=== PATIENT | female | born 1990 | race Caucasian/White ===

== ENCOUNTER 2016-08-27 21:42 | Inpatient (IN) | payer OTHER ==
[~2016-08-27] VITALS: Ht 170.2 cm; Wt 109.8 kg
--- NOTE | 2016-08-27 22:15 | NUR ---
TRIAGE: PT TO ER C/C "FOR THE PAST 4 DAYS I LITERALLY CAN'T STOP CRYING. I CAN'T GET OUT OF THIS REALLY BAD LOW THAT I AM IN AND IT JUST SEEMS TO BE GETTING WORSE." -SI/-HI. ADMITS TO OCCASIONAL ETOH USE, LAST DRINK WINE 2 WEEKS AGO. DENIES OTHER SUBSTANCE USE/ABUSE. PT CALM AND NOT ACTIVELY CRYING AT TRIAGE. PT HERE WITH HER .
--- NOTE | 2016-08-27 22:15 | NUR ---
Informed waiting has been performed.
--- NOTE | 2016-08-27 22:54 | ED PSYCHIATRIC COMPLAINT ---
See Addendum History of Present Illness General Chief Complaint: Psychiatric Related Complaint Stated Complaint: PSY EVAL, DENIES SI/HI "FEELS HOPELESS" Source: patient, old records Exam Limitations: no limitations Vital Signs & Intake/Output Vital Signs & Intake/Output Vital Signs Date Time Temp Pulse Resp B/P B/P Pulse O2 O2 Flow FiO2 Mean Ox Delivery Rate 08/28 0130 97.2 86 18 130/82 99 Room Air 08/27 2212 97.6 88 20 138/86 99 Room Air ED Intake and Output 08/28 0000 08/27 1200 Intake Total Output Total Balance Patient 242 lb Weight Weight Reported by Patient Measurement Method Allergies Coded Allergies: orange juice (Severe, TONGUE SWELLING 08/27/16) codeine (Intermediate, HYPER 08/27/16) Triage Note: TRIAGE: PT TO ER C/C "FOR THE PAST 4 DAYS I LITERALLY CAN'T STOP CRYING. I CAN'T GET OUT OF THIS REALLY BAD LOW THAT I AM IN AND IT JUST SEEMS TO BE GETTING WORSE." -SI/-HI. ADMITS TO OCCASIONAL ETOH USE, LAST DRINK WINE 2 WEEKS AGO. DENIES OTHER SUBSTANCE USE/ABUSE. PT CALM AND NOT ACTIVELY CRYING AT TRIAGE. PT HERE WITH HER . Triage Nurses Notes Reviewed? yes Onset: Gradual Duration: week(s): (4), constant, getting worse Timing: recent history Severity: severe Severity Numbers: 10 Associated Symptoms: anxiety, impaired concentration, insomnia : No Patient currently breastfeeds: No HPI: 25-year-old female with history of depression however is not currently on medication presents to the ER for evaluation complaining of progressively worsening depression, insomnia and feeling "hopeless" the patient states that she's had a history of depression for the past several years after giving to a stillborn. She has been on medications in the past however is not currently. She states that she's had intermittent episodes since then however most recently she states due to a lab error she was told she was when she was not. She states that this has caused her most recent episode. The patient states that she has not suicidal or homicidal however states that she "just doesn't care if she wakes up" patient reports to social alcohol use however has not had a drink in several weeks no drug use. The patient is otherwise without any complaints currently. She is not taking medications on a regular basis she lives with her and 7-year-old daughter (LEVI GUEVARA) Past History Travel History Traveled to [place] past 21 day No Medical History Any Pertinent Medical History? 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 No (LEVI GUEVARA) Review of Systems Review of Systems Constitutional: Reports: see HPI. All Other Systems: Reviewed and Negative Comments Review of systems: See HPI, All other systems negative. Constitutional, no chills no fever, no malaise HEENT: no sore throat no congestion, no ear pain Cardiovascular: No chest pain , no palpitation , no orthopnea Skin: no rashes, no change in skin Respiratory: No dyspnea no cough no sputum GI: No nausea no vomiting, no diarrhea, : No dysuria No hematuria, Muscle skeletal: No joint pain, no joint swelling, no back pain Neurologic: no headache Psych:o stress depression,. Heme/endocrine: No bruising no bleeding Immunology: No lymphadenopathy (LEVI GUEVARA) Physical Exam Physical Exam General Appearance: well developed/nourished, alert, awake Neurological/Psychiatric: awake, alert, calm, attending ambulatory care II-XII nml as tested, depressed affect Comments: Well-developed well-nourished person in no acute distress HEENT: Normal EENT exam; PERRL, EOMI HEAD is atraumatic. moist mucous membranes. Neck: Supple, normal range of motion Back: Nontender, no CVA tenderness. Full range of motion Cardiovascular: Regular rate and rhythms no murmurs rubs Respiratory: Chest nontender.There were no bony deformities, no asymmetry. No respiratory distress. Patient speaking in full complete sentences. Breath sounds clear to auscultation bilaterally: NO W/R/R Abdomen: Soft, nontender Extremity: No edema, full range of motion of extremities Neuro: Alert oriented x3, motor sensory normal, cranial nerves II through XII grossly intact. There were no obvious focal neurologic abnormalities. Skin: No appreciable rash on exposed skin, skin is warm and dry. Psych: Mood and affect is normal, memory and judgment is normal. SAD PERSONS Done? patient not suicidal (BENITO STOVER,LEVI) Progress Differential Diagnosis: depression bipolar anxiety electrolyte abnormality Plan of Care: Orders Procedure Date/time Status Regular Diet 08/28 B Active URINE 08/27 2302 Complete URINE DRUG SCREEN FOR ER ONLY 08/27 2302 Complete URINALYSIS 08/27 2302 Complete ETHANOL 08/27 2302 Complete COMPREHENSIVE METABOLIC PANEL 08/27 2302 Complete CBC WITHOUT DIFFERENTIAL 08/27 2302 Complete ED CRISIS PSYCH CONSULT 08/27 2302 Active Laboratory Tests 08/27/168: Anion Gap 12, Estimated GFR > 60, BUN/Creatinine Ratio 15.7, Glucose 114 H, Calcium 8.4, Total Bilirubin 0.4, AST 10 L, ALT 35, Alkaline Phosphatase 71, Total Protein 6.1 L, Albumin 3.3 L, Globulin 2.8, Albumin/Globulin Ratio 1.2, CBC w Diff NO MAN DIFF REQ, RBC 4.82, MCV 66.4 L, MCH 20.9 L, RDW 15.9 H, MPV 8.2, Gran % 58.8, Lymphocytes % 35.5, Monocytes % 4.4, Eosinophils % 0.9, Basophils % 0.4, Absolute Granulocytes 6.4, Absolute Lymphocytes 3.8 H, Absolute Monocytes 0.5, Absolute Eosinophils 0.1, Absolute Basophils 0, PUBS MCHC 31.4 L, Serum Alcohol < 10.0 08/27/162307: Urine Opiates Screen < 100.00, Methadone Screen < 40, Barbiturate Screen < 60, Ur Phencyclidine Scrn < 6.00, Amphetamines Screen < 100, U Benzodiazepines Scrn < 85, Urine Cocaine Screen < 50, Urine Cannabis Screen < 5.00, Urinalysis LIGHT H, Urine Color YEL, Urine Clarity HAZY H, Urine pH 6.0, Ur Specific [place] 1.025, Urine Protein TRACE H, Urine Ketones NEG, Urine Nitrite NEG, Urine Bilirubin NEG, Urine Urobilinogen 0.2, Ur Leukocyte Esterase NEG, Ur Microscopic SEDIMENT EXAMINED, Urine RBC 1-3, Urine WBC 3-5 H, Ur Epithelial Cells MOD H, Urine Bacteria MANY H, Urine Mucus MOD H, Urine Hemoglobin SMALL H, Urine Glucose NEG, Urine Test NEGATIVE Labs ordered patient is calm cooperative at this time and it is Ativan 1 mg by mouth discussed with patient plan of care she'll BE a hold over for crisis evaluation in the morning 100 Case discussed with and signed out to Dr. Olmstead pending crisis eval in the morning (LEVI GUEVARA) Hand-Off Endorsed To: CHRISTIANO OLMSTEAD MD Endorsed Time: 0100 Pending: consult (crisis) (LEVI GUEVARA) Hand-Off Endorsed To: FELICIA MORALES DO (CHRISTIANO OLMSTEAD MD) Departure Departure Disposition: STILL A PATIENT Condition: Stable Clinical Impression Primary Impression: Depression Referrals: ABHAY HERNANDEZ,TRINI HERMAN (PCP/Family) Departure Forms: Customer Survey General Discharge Information (LEVI GUEVARA) PA/TANK PROCESSOR Co-Sign Statement Statement: ED Attending supervision documentation- [] I saw and evaluated the patient. I have also reviewed all the pertinent lab results and diagnostic results. I agree with the findings and the plan of care as documented in the PA's/TANK PROCESSOR's documentation. [x] I have reviewed the ED Record and agree with the PA's/TANK PROCESSOR's documentation. [] Additions or exceptions (if any) to the PAs/TANK PROCESSOR's note and plan are summarized below: [] (NATHANAEL HERNANDEZ,CHRISTIANO Shaffer) Departure Comments 08/28/16 7 AM PATIENT SIGNED OUT TO ME , PENDING CRISIS EVALUATION. (FELICIA MORALES DO)
--- NOTE | 2016-08-27 23:01 | NUR ---
CK ALVAREZ AT BEDSIDE FOR EVAL.
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
--- NOTE | 2016-08-27 23:42 | NUR ---
LABS DRAWN AND SENT BY THIS [facility]. BLUE,SST,LAV.
[2016-08-27 23:45] LABS: ABSOLUTE BASOPHIL COUNT 0 /CUMM (0.0-0.2); ABSOLUTE EOSINOPHIL COUNT 0.1 /CUMM (0.0-0.7); ABSOLUTE GRANULOCYTE CT 6.4 /CUMM (1.4-6.5); ABSOLUTE LYMPH COUNT 3.8 /CUMM (1.2-3.4); ABSOLUTE MONOCYTE COUNT 0.5 /CUMM (0.10-0.60); BASOPHIL % 0.4 % (0.0-2.0); EOSINOPHIL % 0.9 % (0-5); GRANULOCYTE % 58.8 % (42.2-75.2); MEAN CORPUSCULAR HGB 20.9 PG (27.0-31.0); MEAN CORPUSCULAR HGB CONC 31.4 G/DL (33.0-37.0); MEAN CORPUSCULAR VOLUME 66.4 FL (81.0-99.0); MEAN PLATELET VOLUME 8.2 FL (7.4-10.4); PLATELET COUNT 279 /CUMM (130-400); RBC DISTRIBUTION WIDTH 15.9 % (11.5-14.5); RED BLOOD CELL CT 4.82 /CUMM (4.20-5.40); WHITE BLOOD CELL COUNT 10.8 /CUMM (4.8-10.8)
--- NOTE | 2016-08-27 23:45 | NUR ---
PT WILL STAY OVER NIGHT FOR CRISIS EVAL IN THE AM.
--- NOTE | 2016-08-28 05:38 | NUR ---
PT CONTINUES TO SLEEP
--- NOTE | 2016-08-28 08:33 | NUR ---
PT WAITING FOR CRISIS EVAL.
[2016-08-28] MEDS ORDERED: NUVARING VAGIN1 EACH VG (10:09)
--- NOTE | 2016-08-28 10:10 | NUR ---
PT AWAKE CRISIS WAS IN ROOM FOR INTERVIEW STATES PT WOULD LIKE WATER WATER PROVIDED FINGER FOOD TRAY ORDERED
--- NOTE | 2016-08-28 10:54 | NUR ---
PT ALERT AWAKE WAITING FOR POC AND LUNCH TRAY
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
--- NOTE | 2016-08-28 11:40 | NUR ---
WOVEN BLIND LOOM TENDER AT BEDSIDE TO DISCUSS PLAN FOR BEDSEARCH
--- NOTE | 2016-08-28 14:08 | NUR ---
PT SLEEPING, EQUAL CHEST RISE AND FALL OBSERVED. CALL [facility] IN [place]
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
--- NOTE | 2016-08-28 14:59 | NUR ---
PT OFFERS NO COMPLAINTS. ICE WATER PROVIDED. REMAINS CALM, COOPERATIVE WITH ORGANIZED THOUGHT. INFORMED THAT WILL CALL CRISIS WHEN HE GETS OUT OF WORK, AND THAT CRISIS IS WORKING ON BED OBTAINMENT
--- NOTE | 2016-08-28 15:37 | NUR ---
CRISIS IN WITH PT, PLAN TO ADMIT TO CPS.
--- NOTE | 2016-08-28 16:19 | NUR ---
CPS NOT READY FOR REPORT.
--- NOTE | 2016-08-28 17:00 | NUR ---
REPORT GIVEN DISTRIBUTION BOOKED.
--- NOTE | 2016-08-28 18:31 | NUR ---
Admitted from ED on voluntary for depression +SI. Reports worsening depression with passive thoughts of wanting to . During intewrview patient spontaneously indicated forward thinking especially in relation to her family. Reorts considerable family hx with father committing suicide about 9 years ago. Stressor includes still 3 years ago and recent trigger during visit to another local hospital in which she was erroneously told she was . Mood is stable with some tears, affect euthymic.
[2016-08-28 19:53] VITALS: BP 139/74
--- NOTE | 2016-08-29 05:41 | NUR ---
PATIENT SLEPT ALL NIGHT.
[2016-08-29 07:49] VITALS: BP 139/80
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
[2016-08-29 12:25] VITALS: BP 130/88
--- NOTE | 2016-08-29 13:47 | NUR ---
PT VISIBLE IN THE [facility]IEU THROUGHOUT THE DAY. HER GOAL TODAY WAS TO ADJUST TO THE [facility]. PT HAS BEEN GOING TO [employer] THROUGHOUT THE DAY, SHE HAS SOME INTERACTIONS WITH PEERS BUT MOSTLY KEEPS TO HERSELF. PT SHARED SHE HAS A LOT ON HER MIND, AND FEELS HER MIND IS RACING. PT DENIES THOUGHTS OF HURTING HERSELF WHEN ASKED.
--- NOTE | 2016-08-29 15:35 | SOCIAL WORKER PROG NOTE PSYCH ---
Social Work Progress Note Progress Note Edita attended all groups today. Reports that she really feels uncomfortable here and doesn't feel like she can relate to most of the patients on the unit. She is hoping to go home by the latest. She debated over the weekend about whether she really needed to come to the hospital. Her helped her get here. She had been crying uncontrollably for days. She shared that she had a still born baby 3 years ago. She also shared recent events that took place at [facility] where they called her to report that she was . She stated her and her have been really trying to have another baby over the past year and when she heard this news she was elated, but within minutes determined this information must be false and she got extremely upset and sad. The whole thing was retraumatizing for her. She talked about how she really has bottled up alot of emotions over the baby's and that her doesn't say much. She has been wanting to talk to someone and feels she would benefit from therapy. She is afraid to go on medications at this time. She is thinking of trying again to get . She reports no medical reasons for her not being able to. 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 Her just started a new job. She doesn't think he will be able to take time off from work to attend a meeting in person, but maybe can do a phone conference. She will speak with him tonight. Shahana Sujata AUSTIN joined part of the meeting. We continued to talk about the importance of follow up therapy and looking into IOP. She has to be at work for 1pm, so not sure if this would work. If not, we will look at outpatient services. Shahana talked about not starting her on any medication right now, especially if she is looking to get .
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
[2016-08-29 16:33] VITALS: BP 148/91
--- NOTE | 2016-08-29 19:07 | History & Physical ---
General Information and HPI MD Statement: I have seen and personally examined ROD BAH and documented this H&P. The patient is a 25 year old F who presented with a patient stated chief complaint of "I feel hopeless"]. Source of Information: patient Exam Limitations: no limitations History of Present Illness: 25-year-old white female with history of depression not on medications at this moment. Has been feeling progressively worsening of her depression with insomnia feeling hopeless having suicidal thoughts and she is in a depressive mood. She admitted for evaluation and treatment Allergies/Medications Allergies: Coded Allergies: orange juice (Severe, TONGUE SWELLING 08/27/16) codeine (Intermediate, HYPER 08/27/16) Home Med list Etonogestrel/Ethinyl Estradiol (Nuvaring Vaginal Ring) 0.12 MG -0.015 MG/24 HR VAG.RING 1 EACH VG Q30D BC (Reported) use for 3 weeks, skip for 1 week Compliance With Home Meds: POOR Past History Travel History Traveled to [place] past 21 day No Medical History Neurological: migraine EENT: NONE Cardiovascular: NONE Respiratory: asthma Gastrointestinal: NONE Hepatic: NONE Renal: NONE Musculoskeletal: NONE Psychiatric: anxiety Endocrine: NONE Blood Disorders: anemia Cancer(s): NONE 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 Exam & Diagnostic Data Last 24 Hrs of Vital Signs/I&O Vital Signs Date Time Temp Pulse Resp B/P B/P Pulse O2 O2 Flow FiO2 Mean Ox Delivery Rate 08/29 1633 93 148/91 08/29 1225 98 130/88 08/29 0749 97.1 98 139/80 08/28 1953 97.4 96 139/74 Intake & Output 08/29 1600 08/29 0800 08/29 0000 Intake Total Output Total Balance Patient 242 lb Weight Physical Exam General Appearance Alert, Oriented X3, Cooperative, No Acute Distress Skin No Rashes, some redness around the previous IV site HEENT PERRLA, EOMI Neck Supple, No JVD, No thryomegaly, +2 Carotid Pulse wo Bruit Lymphatic Axillary nl, Cervical nl Cardiovascular Regular Rate, No Murmurs Lungs Clear to Auscultation Abdomen Normal Bowel Sounds, Soft, No Tenderness Neurological Exam Findings: Normal Gait, Normal Speech, Strength at 5/5 X4 Ext, Normal Tone, Sensation Intact, Cranial Nerves 3-12 NL, Reflexes 2+ Cranial Nerves II through XII: Intact Extremities No Edema, Normal Pulses Vascular Normal Pulses, Pulses Symmetrical Last 24 Hrs of Labs/Kiel: Laboratory Tests 08/27/16 2338: Anion Gap 12, Estimated GFR > 60, BUN/Creatinine Ratio 15.7, Glucose 114 H, Calcium 8.4, Total Bilirubin 0.4, AST 10 L, ALT 35, Alkaline Phosphatase 71, Total Protein 6.1 L, Albumin 3.3 L, Globulin 2.8, Albumin/Globulin Ratio 1.2, TSH 2.600, CBC w Diff NO MAN DIFF REQ, RBC 4.82, MCV 66.4 L, MCH 20.9 L, RDW 15.9 H, MPV 8.2, Gran % 58.8, Lymphocytes % 35.5, Monocytes % 4.4, Eosinophils % 0.9, Basophils % 0.4, Absolute Granulocytes 6.4, Absolute Lymphocytes 3.8 H, Absolute Monocytes 0.5, Absolute Eosinophils 0.1, Absolute Basophils 0, PUBS MCHC 31.4 L, Serum Alcohol < 10.0 08/27/16 2308: Urine Opiates Screen < 100.00, Methadone Screen < 40, Barbiturate Screen < 60, Ur Phencyclidine Scrn < 6.00, Amphetamines Screen < 100, U Benzodiazepines Scrn < 85, Urine Cocaine Screen < 50, Urine Cannabis Screen < 5.00, Urinalysis LIGHT H, Urine Color YEL, Urine Clarity HAZY H, Urine pH 6.0, Ur Specific [place] 1.025, Urine Protein TRACE H, Urine Ketones NEG, Urine Nitrite NEG, Urine Bilirubin NEG, Urine Urobilinogen 0.2, Ur Leukocyte Esterase NEG, Ur Microscopic SEDIMENT EXAMINED, Urine RBC 1-3, Urine WBC 3-5 H, Ur Epithelial Cells MOD H, Urine Bacteria MANY H, Urine Mucus MOD H, Urine Hemoglobin SMALL H, Urine Glucose NEG, Urine Test NEGATIVE Assessment/Plan As Ranked By This Provider Problem List: 1. Depression Miscellaneous Miscellaneous Documentation Attending Case Discussed With: SOLEDAD SOLORIO MD Primary Care Physician: TRINI BLANK MD Patient sees these Specialists Psychiatry Level of Patient Care: JOCELIN Glaser Consults Needed: Consulting Specialty: Psychiatry Consulting Physician: Lukas Fuentes MD Reason for Consult: worsening depression
[2016-08-29 20:14] VITALS: BP 131/76
--- NOTE | 2016-08-29 21:12 | NUR ---
PT IS CALM, COOPERATIVE WITH STAFF AND PEERS, AND COMPLIANT WITH UNIT RULES. PT IS OFTEN IN [place] INTERACTING WELL WITH OTHERS. MOOD IS STABLE, AFFECT IS EUTHYMIC TO FULL RANGE, COMMUNICATION IS ORGANIZED AND APPEARS NORMAL IN ALL RESPECTS, AND APPETITE IS NORMAL. PT DENIES SI AT THIS TIME.
[2016-08-30 08:26] VITALS: BP 127/78
[2016-08-30 12:11] VITALS: BP 142/76
--- NOTE | 2016-08-30 12:37 | NUR ---
PT IS PRESENT WITHIN THE COMMUNITY, CALM, COOPERATIVE, PLEASANT AND RESPECTFUL, TREATMENT COMPLIANT, IN PLANNING MEETING REPORTED POOR SLEEP, ANXIOUS AND "PREPARING FOR FAMILY MEETING AND MAYBE DISCHARGE". IN FOCUS GROUP HAD + PARTICIPATION, MOOD STABLE WITH FULL RANGE AFFECT, VSS.
--- NOTE | 2016-08-30 13:17 | SOCIAL WORKER PROG NOTE PSYCH ---
Social Work Progress Note Progress Note Arlet Shahananereida Ernst APRN, and I met with Edita and had a phone conference with her Jaspreet. Jaspreet was quiet and didn't say much during the meeting, other than she hadn't been acting like herself. He didn't really offer much information and didn't share any specific concerns when asked. We talked about the possibility of her following up at [facility] if [facility] could make an accomodation for her to leave early to get to work. She really was ambivalent about the idea and was really advocating for individual therapy weekly. She eventually agreed that if she can leave early she would consider it. After the phone conference ended, we continued our discussion. She is really advocating to leave [place]. She really dislikes being with the other patients on the unit and considers them much lower functioning and so she is having difficulty relating. She talked about how she has needed to talk to people, but she just continues to bring up the fact that her baby and nothing will change that and her feelings won't change. I agreed that she has suffered a loss and that won't change, but encouraged her to think about how she is dealing with that and what she can do to cope so that she is not bursting into tears every time she talks about it. She doesn't want to consider medication at this time, despite Shahana's numerous attempts to talk with her about some safe medication to use if she is considering getting again. She continuously keeps busy at home to not focus on herself or her thoughts/ feelings. She is having a difficult time with being slowed down here. We are planning discharge tomorrow, although a clear discharge plan is still being worked on. I spoke with Gissell Salcido (coordinator of the [facility]) she stated that she cannot come to [facility] if she has to leave any earlier than 12:45pm, due to billing. Arlet lives in [place] and works out of [place] most of the time. She is not going to be able to do the IOP, due to her job. We talked about a referral to [facility] in [place]. She signed a release for me to do a referral. I left them a voicemail.
--- NOTE | 2016-08-30 13:47 | CP SOUTH PROGRESS NOTE PSYCH ---
Psych (Inpt) Progress Note Progress Note Include the following elements, when applicable: Involvement in the active treatment of the patient with behavioral observations of the patient and the patient's response to the treatment. Review of the ongoing treatment process in the context of the treatment plan. Indication of how multi-disciplinary staff members are carrying out the treatment plan. Plans for future interventions and recommendations for revision of the treatment plan. Liaison with other physicians/providers. Progress Note: I discussed this patient's progress to date, current mental status, treatment process in the context of the treatment plan, and discharge planning with staff/ team in the daily morning inpatient team meeting. I also met with the patient myself in individual session. OBJECTIVE: Current Medications Sig/Remy Start time Last Medication Dose Route Stop Time Status Admin Calcium Carbonate 500 MG DAILY 08/29 1845 AC 08/30 PO 0927 Diphenhydramine HCl 25 MG Q4 HRS NEEDED PRN 08/30 1315 AC 08/30 PO 1346 Diphenhydramine HCl 50 MG AT BEDTIME PRN 08/30 1315 AC PO Gabapentin 300 MG Q8P PRN 08/29 1030 AC PO Ibuprofen 400 MG Q6P PRN 08/29 1500 AC 08/29 PO 1526 Vital Signs Date Time Temp Pulse Resp B/P B/P Pulse O2 O2 Flow FiO2 Mean Ox Delivery Rate 08/30 1211 92 142/76 08/30 0826 97.5 92 127/78 08/29 2014 98.5 88 131/76 08/29 1633 93 148/91 ASSESSMENT: Chart, progress notes, labs, VS and medication list were reviewed. Met with the patient together with Porsha Flores LCSW for a family phone conference with the patient's , Jaspreet (#[phone]). We discussed the patient's progress to date, level of safety, and discharge planning. Jaspreet communicated little during phone conference; he expressed that he noticed the patient had been more isolative at home over the past week. He expressed that she knows herself well and knows her limits and that she requested to come to hospital. He denied having any safety concerns over her being discharged. On patient encounter following phone conference, the patient presented with somewhat of an irritable edge, very focused on being discharged. Speech was average in rate, tone and volume; non-pressured. She expressed feeling anxious/ scared on unit around select patients. Affect was quite labile - tearful - irritable - anxious. Mood was primarily "anxious, frustrated (being here)." She reported poor sleep 2/2 her roommate talking in her sleep and staff coming in/ out of room performing safety checks. She denied passive and active suicidal ideation, plans and intent. Denied homicidal ideation. Gave protective factors of "my daughter" and "my ." Future oriented to return to work. Denied auditory/visual hallucinations. Denied paranoid thoughts. There was no evidence of delusions. Reported "some" racing thoughts last night of "the things I need to do when I get home (i.e. go to work, take care of my daughter, take care of my house)." Thought process was goal-directed, linear. Cognition grossly intact. Insight and judgement limited. I recommended she consider medication options to target mood symptoms and racing thoughts; recommendation was made for low-dose Trilafon (given less teratogenic effects in 1st gen AP than 2nd gen AP medications & patient's goal to start family planning at end of month). Patient declined medication trials, reported "I don't want to rely on a pill." She requested prn benadryl for anxiety/ insomnia while on unit. Additionally, counseling was provided to patient on not making any major life changes for some time following hospitalization, until she has more supports in her life and develops more coping mechanisms. PLAN: 1. Continue monitoring for safety, mood and racing thoughts. 2. Start benadryl prn for anxiety/insomnia. 3. Encourage participation in milieu groups. 4. Consider discharge tomorrow with IOP versus OP f/u.
[2016-08-30 16:02] VITALS: BP 145/84
[2016-08-30 20:21] VITALS: BP 139/76
--- NOTE | 2016-08-30 21:19 | ULTRASOUND REPORT ---
EXAMINATION: US SUPERFICIAL IMAGING, EXTREMITY, left antecubital fossa CLINICAL INFORMATION: IV administered last . Probable lump since then for 3 days. COMPARISON: None TECHNIQUE: Grayscale ultrasound and color Doppler exam and spectral Doppler exam of the left antecubital fossa. FINDINGS: No fluid collection or abscess. No hyperemia or soft tissue swelling seen. In the cephalic vein is a partially occlusive thrombus. IMPRESSION: 1. No abscess or focal fluid collection. 2. Partially occlusive thrombus of the cephalic vein. This critical result was discussed with Dr. Garber on 08/30/2016, 9:15 PM and it was ascertained that the content and urgency of the report was understood at the time of direct communication.
--- NOTE | 2016-08-30 21:23 | ULTRASOUND REPORT ---
EXAMINATION: US TRIPLEX UPPER EXTREMITY, LEFT CLINICAL INFORMATION: Left upper extremity pain, swelling and edema. COMPARISON: None. TECHNIQUE: Color-flow triplex imaging with spectral analysis and compression Doppler were performed on the left upper extremity. FINDINGS: Multiple grayscale, color Doppler and spectral Doppler images of the left upper extremity veins demonstrate nearly occlusive thrombus within the cephalic vein, with echogenic thrombus visualized within the cephalic vein from the left upper arm to the antecubital fossa. The remaining imaged veins of the left upper extremity are patent. Specifically, the left internal jugular, subclavian, axillary, basilic, brachial, radial and ulnar veins are patent, without evidence of thrombosis. IMPRESSION: Partially occlusive thrombus within the cephalic vein, with echogenic thrombus visualized within the cephalic vein, from the left upper arm to the antecubital fossa. The cephalic vein is a superficial vein. There is no visible thrombus within the deep veins of the left upper extremity. This critical result was discussed with Dr. Amilcar Garber at 9:19 PM on 08/30/2016 and it was ascertained that the content and urgency of the report was understood at the time of direct communication.
--- NOTE | 2016-08-30 21:47 | NUR ---
PT IS VISIBLE ON UNIT, WATCHING TV IN LOUNGE AND SOCIALIZING WITH PEERS. WENT UP FOR ULTRASOUND MID EVENING. ATTENDED WRAP UP MEETING. COOPERATIVE AND COMPLIANT WITH STAFF. NO COMPLAINTS OR SI REPORTED. PT HAS A STABLE MOOD AND FULL RANGE AFFECT.
--- NOTE | 2016-08-31 02:11 | NUR ---
DR HOU CALLED 08/30/16 AT 2130 TO SAY HE WAS CALLED BY THE RADIOLOGIST REGARDING HER U/S OF ARM. SUPERFICIAL INFILTRATE NOTED. (SEE REPORT) NO SPECIAL ORDERS GIVEN AT THAT TIME.
[2016-08-31 07:57] VITALS: BP 144/85
--- NOTE | 2016-08-31 09:13 | SOCIAL WORKER PROG NOTE PSYCH ---
Social Work Progress Note Progress Note Called Korey Ingram again this morning. The director needs to call back to discuss the referral and won't be in until late this morning. Spoke with Arlet about trying other options. She was fine with that. Called Sol Ingram and [facility] and left messages. Edita stated that her will pick her up today when she is ready today. She is planning to have lunch with her Aunt today. Tomorrow plans to have a manicure/ pedicure. Encouraged good self care. She is planning on returning to work on Sunday and would like a letter from here. She was given some information on support groups for parents who lost infants. Sol Ingram called back and is able to see her on Monday 09/04 at 10am for individual therapy.
[2016-08-31 12:20] VITALS: BP 148/89
--- NOTE | 2016-08-31 13:05 | NUR ---
PT IS PRESENT WITHIN THE COMMUNITY, SOCIAL AND APPROPRIATE WITH PEERS AND STAFF, NO COMPLAINTS OR ISSUES REPORTED OR OBSERVED, MOOD STABLE WITH FULL RANGE AFFECT. WHEN ASKED DIRECTLY DENIES SI/HI/HALLUCINATIONS. INFORMATION PACKETS RE: DEPRESSION & SI GIVEN. PT RESOURCE GUIDE AND W-10 REVIEWED WITH PT AND HAD NO QUESTIONS, HAS + UNDERSTANDING OF DISCHARGE FOLLOW-UP AND INSTRUCTIONS AND LEAVING ON NO SCHEDULED MEDICATIONS, REPORTS OVERALL IMPROVEMENT IN MOOD & BEHAVIOR AND FEELS READY FOR DISCHARGE, MET WITH DR. SIMONS AND SCHEDULED TO LEAVE SHORTLY.
--- NOTE | 2016-08-31 15:41 | CP SOUTH PROGRESS NOTE PSYCH ---
Psych (Inpt) Progress Note Progress Note Include the following elements, when applicable: Involvement in the active treatment of the patient with behavioral observations of the patient and the patient's response to the treatment. Review of the ongoing treatment process in the context of the treatment plan. Indication of how multi-disciplinary staff members are carrying out the treatment plan. Plans for future interventions and recommendations for revision of the treatment plan. Liaison with other physicians/providers. Progress Note: The patient is a 25-year-old white woman admitted on 08/28/16. She carries the diagnosis unspecified depression, rule out bipolar disorder, rule out PTSD. Case and treatment plan discussed in team meeting. Staff reports that the patient had a telephonic family meeting with her . Patient has some anxiety. Patient apparently had a superficial thrombus in cephalic vein. Medication list reviewed. Patient seen at 12:10 PM with medical studentPhoebe. Patient reports she is here because she was feeling overwhelmed. Feels better now. Feels a little anxious. Reports she has to bring a note to work to address her absence. Reports she had been withdrawn for 2 weeks prior to presentation. Plans to go get a pedicure today. Mental status examination: The patient is an ambulatory, overweight, casually dressed white female, sitting in a chair in no acute distress. She is calm, polite and cooperative. There is no psychomotor agitation or retardation. Speech is normal in volume, rate and tone. Affect is calm and euthymic. Reports mood is not bad. Reports she is ready to get out. Reports she needs to get some fresh air. Rates anxiety about 2/10 and sad mood about 1/10. Denies feeling hopeless, helpless, worthless or guilty. Denies active and passive suicidal ideation. Denies homicidal ideation. Denies auditory and visual hallucinations and paranoid ideation. Reports she is a light sleeper and is tired. She misses her puppy and her bed at home. Appetite: reports eating a lot here. Reports she wasn't eating at home. Describes energy as both hyper and tired. Plans to return to home and and daughter. Feels ready and safe for discharge. Wants to return to work on 09/05/16 and plans to follow-up with [facility] in [place] on Sunday. IMPRESSION: Condition improved. Okay for discharge today with plan as above. Patient is on no standing psychiatric medication.
--- NOTE | 2016-08-31 15:54 | DISCHARGE SUMMARY REPORT-PSYCH ---
Visit Information Visit Dates/Diagnosis' Admission Date: 08/28/16 Discharge Date: 08/31/16 Reason for Admission: Exacerbation in depression and passive suicidal ideation. Psy Discharge Primary Diag: Unspecified depression Psy Discharge Secondary Diag: R/o bipolar disorder R/o PTSD Anemia Superfical thrombus left cephalic vein Hospital Course Significant Lab Findings: Lab AST 10 U/L L 08/27/162337 Albumin 3.3 g/dL L 08/27/168 Glucose 114 mg/dL H 08/27/168 Total Protein 6.1 g/dL L 08/27/168 Absolute Lymphocytes 3.8 /CUMM H 08/27/162337 Hct 32.0 % L 08/27/162337 Hgb 10.1 G/DL L 08/27/162337 MCH 20.9 PG L 08/27/162337 MCV 66.4 FL L 08/27/162337 PUBS MCHC 31.4 G/DL L 08/27/162337 RDW 15.9 % H 08/27/162337 PATIENT: ROD BAH PRESENT AGE: 25 PATIENT ACCOUNT NO: [id number] : 88 LOCATION: [facility] ORDERING PHYSICIAN: JONE GARBER MD SERVICE DATE: 08/30/16- EXAM TYPE: US - US-UNILATERAL VENOUS DOPPLER EXAMINATION: US TRIPLEX UPPER EXTREMITY, LEFT CLINICAL INFORMATION: Left upper extremity pain, swelling and edema. COMPARISON: None. TECHNIQUE: Color-flow triplex imaging with spectral analysis and compression Doppler were performed on the left upper extremity. FINDINGS: Multiple grayscale, color Doppler and spectral Doppler images of the left upper extremity veins demonstrate nearly occlusive thrombus within the cephalic vein, with echogenic thrombus visualized within the cephalic vein from the left upper arm to the antecubital fossa. The remaining imaged veins of the left upper extremity are patent. Specifically, the left internal jugular, subclavian, axillary, basilic, brachial, radial and ulnar veins are patent, without evidence of thrombosis. IMPRESSION: Partially occlusive thrombus within the cephalic vein, with echogenic thrombus visualized within the cephalic vein, from the left upper arm to the antecubital fossa. The cephalic vein is a superficial vein. There is no visible thrombus within the deep veins of the left upper extremity. This critical result was discussed with Dr. Jone Garber at 9:19 PM on 08/30/2016 and it was ascertained that the content and urgency of the report was understood at the time of direct communication. DICTATED BY: GINA LISA MD DATE/TIME DICTATED:08/30/162044 VACUUM TECHNICIAN:ISAIAH DATE/TIME TRANSCRIBED:08/30/162044 CONFIDENTIAL, DO NOT COPY WITHOUT APPROPRIATE AUTHORIZATION. <Electronically signed in Other Vendor System> SIGNED BY: GINA LISA MD 08/30/162122 PATIENT: ROD BAH PRESENT AGE: 25 PATIENT ACCOUNT NO: [id number] : 88 LOCATION: [facility] ORDERING PHYSICIAN: JONE GARBER MD SERVICE DATE: 08/30/16- EXAM TYPE: US - US-SUPERFICIAL IMAGING EXTREMI EXAMINATION: US SUPERFICIAL IMAGING, EXTREMITY, left antecubital fossa CLINICAL INFORMATION: IV administered last . Probable lump since then for 3 days. COMPARISON: None TECHNIQUE: Grayscale ultrasound and color Doppler exam and spectral Doppler exam of the left antecubital fossa. FINDINGS: No fluid collection or abscess. No hyperemia or soft tissue swelling seen. In the cephalic vein is a partially occlusive thrombus. IMPRESSION: 1. No abscess or focal fluid collection. 2. Partially occlusive thrombus of the cephalic vein. This critical result was discussed with Dr. Garber on 08/30/2016, 9:15 PM and it was ascertained that the content and urgency of the report was understood at the time of direct communication. DICTATED BY: EDWARD HERNÁNDEZ MD DATE/TIME DICTATED:08/30/162042 VACUUM TECHNICIAN:ISAIAH DATE/TIME TRANSCRIBED:08/30/162042 CONFIDENTIAL, DO NOT COPY WITHOUT APPROPRIATE AUTHORIZATION. <Electronically signed in Other Vendor System> SIGNED BY: EDWARD HERNÁNDEZ MD 08/30/162118 EKG 08/29/2016 at 16:24:05 showed sinus rhythm at a rate of 89, minor changes since previous tracing, normal ECG. Course Complications: None. Consultations: Patient was seen by Dr. Jone Garber for admission H&P. Please refer to his note for additional information. Patient had a superficial thrombus in left cephalic vein that apparently was related to an infiltrated IV that occurred prior to her coming to [facility]. Allergies: Coded Allergies: orange juice (Severe, TONGUE SWELLING 08/27/16) codeine (Intermediate, HYPER 08/27/16) Hospital Course/TX Response: The patient was monitored on the unit for safety and mood disorder. She participated in multi-modal treatments on the unit. She had a telephonic family meeting with her . Patient was offered medication to target mood symptoms and racing thoughts, but patient declined a standing medication trial, reporting that she did not want to rely on a pill. She requested prn Benadryl for anxiety/insomnia while on the unit, and this was ordered. Progress note from date of discharge, 08/31/2016: The patient is a 25-year-old white woman admitted on 08/28/16. She carries the diagnosis unspecified depression, rule out bipolar disorder, rule out PTSD. Case and treatment plan discussed in team meeting. Staff reports that the patient had a telephonic family meeting with her . Patient has some anxiety. Patient apparently had a superficial thrombus in cephalic vein. Medication list reviewed. Patient seen at 12:10 PM with medical studentPhoebe. Patient reports she is here because she was feeling overwhelmed. Feels better now. Feels a little anxious. Reports she has to bring a note to work to address her absence. Reports she had been withdrawn for 2 weeks prior to presentation. Plans to go get a pedicure today. Mental status examination: The patient is an ambulatory, overweight, casually dressed white female, sitting in a chair in no acute distress. She is calm, polite and cooperative. There is no psychomotor agitation or retardation. Speech is normal in volume, rate and tone. Affect is calm and euthymic. Reports mood is not bad. Reports she is ready to get out. Reports she needs to get some fresh air. Rates anxiety about 2/10 and sad mood about 1/10. Denies feeling hopeless, helpless, worthless or guilty. Denies active and passive suicidal ideation. Denies homicidal ideation. Denies auditory and visual hallucinations and paranoid ideation. Reports she is a light sleeper and is tired. She misses her puppy and her bed at home. Appetite: reports eating a lot here. Reports she wasn't eating at home. Describes energy as both hyper and tired. Plans to return to home and and daughter. Feels ready and safe for discharge. Wants to return to work on 09/05/16 and plans to follow-up with [facility] in [place] on Sunday. IMPRESSION: Condition improved. Okay for discharge today with plan as above. Patient is on no standing psychiatric medication. Discharge HBIPS - Tobacco Use Treatment Offered Post DC Medications Offered: NA-No Tob Use >30 days Post DC Tobacco Treatment Plan: NA-No Tobacco use >30days - EtOH/Drug Use D/O Treatment Offered Post DC Medications Offered: NA-No EtOH/Drug Use D/O Post DC EtOH/SubAbuse [place] Plan: NA-No EtOH/Drug Use D/O Metabolic Screening - Screen if on a Neuroleptic Medication - Metabolic screening should include: - Blood Pressure, BMI, Glucose or Hgb A1c, & a - Lipid profile from within the past 365 days. Metabolic Screening ([x]) Not Applicable, patient not on a neuroleptic. OR () Patient on a neuroleptic(s) . Enter below results for Glucose or Hemoglobin A1C, and lipid panel if obtained during the last 365 days. BMI: 37.900 Blood Pressure: 148/89 Laboratory Results (If applicable): Discharge Instructions General Discharge Information Discharge Medications: Discharge Medications- (Dose, route, freq, indication): Nuvaring vaginal ring 0.12 mg - 0.015 mg/24 hours, in situ, q 30 days, for control Multiple Neuroleptics: ([x]) Not Applicable OR Document below three failed attempts at monotherapy, or a plan to taper to monotherapy, or augmentation of Clozapine. () Patient's Diet: Regular Patient's Activity: No restrictions DC Disposition: Returning to home, and daughter. Plans to return to work on 09/04/16. Recommendations: See PCP for anemia and for repeat urinalysis. Referred To: Tita Stearns LPC at [facility], [address] [place] [address]. Copies To: Tita Stearns LPC
== END 2016-08-31 13:08 | DRG 754 ==
LOC: ERH 21:42 → CP SOUTH 08-28 16:39 → ERHI 08-28 16:39 → CP SOUTH 08-28 17:15
PROVIDERS: Physician Assistant Medical; ADMIT Psychiatry & Neurology Psychiatry
DX: F32.9 Major depressive disorder, single episode, unspecified (principal); I82.612 Acute embolism and thrombosis of superficial veins of left upper extremity; D64.9 Anemia, unspecified
CPT/HCPCS: 76881; 80307; 81001; 81025; 93005; 93010; G0480